=== PATIENT | male | born 1985 | race Caucasian/White ===

== ENCOUNTER 2020-11-30 16:32 | Emergency (ER) | payer MEDICARE, MEDICAID, SELFPAY ==
--- NOTE | ~2020-11-30 | XR_ITS ---
EXAMINATION: XR SHOULDER, LEFT CLINICAL INFORMATION: Fall, left shoulder pain COMPARISON: None TECHNIQUE: Three views of the left shoulder. FINDINGS: The bones and soft tissues are normal. No fracture. Glenohumeral and acromioclavicular alignment is anatomic with normal joint space. No abnormal soft tissue calcifications. XR/XR shoulder LT min 2V IMPRESSION: Normal left shoulder.
--- NOTE | ~2020-11-30 | XR_ITS ---
EXAMINATION: XR CLAVICLE, LEFT CLINICAL INFORMATION: Fall, left clavicular pain COMPARISON: None TECHNIQUE: Single view of the left clavicle. FINDINGS: The clavicle is intact. The bones and soft tissues are normal. No fracture. Acromioclavicular joint alignment is anatomic. XR/XR clavicle LT IMPRESSION: Normal left clavicle.
[2020-11-30 16:34] VITALS: BP 156/93; PULSE 96; RESP 18; TEMP 36.2; O2SAT 99; BMI 43.7
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
== END 2020-11-30 18:49 | disposition home or self-care (01) ==
PROVIDERS: Emergency Provider Internal Medicine
DX: M65.222 Calcific tendinitis, left upper arm (principal); M79.622 Pain in left upper arm
CPT/HCPCS: 73000; 73030; 99283